=== PATIENT | female | born 2000 | race Caucasian/White ===

== ENCOUNTER → 2024-06-06 09:45 | Outpatient (REF) | payer BC, SELFPAY ==
[2024-06-06 12:05] LABS: % Basophils 0.6 % (0-2); % Eosinophils 0.9 % (0-6); % Immature Granulocytes 0.2 % (0-0.5); % Lymphocytes 28.2 % (20.5-51.1); % Monocytes 10.9 % (1.7-9.3); % Neutrophils 59.2 % (42.2-75.2); Absolute Eosinophils 0.1 10^3/uL (0-0.7); Absolute Lymphocytes 1.5 10^3/uL (1.2-3.4); Absolute Monocytes 0.6 10^3/uL (0.1-0.6); Absolute Neutrophils 3.2 10^3/uL (1.4-6.5); Hematocrit 43.4 % (37.0-47.0); Hemoglobin 14.6 g/dL (12.0-16.0); Mean Corp Hgb Conc. 33.6 g/dL (33.0-37.0); Mean Corpuscular Hgb 29.7 pg (27.0-31.0); Mean Corpuscular Volume 88.2 fL (81.0-99.0); Mean Platelet Volume 11.1 fL (7.4-10.4); Nucleated Red Blood Cells % 0 %; Platelet Count 277 10^3/uL (130-400); Red Blood Cell Count 4.92 10^6/uL (4.20-5.40); Red Cell Dist. Width 12.5 % (11.5-14.5); White Blood Cell Count 5.4 10^3/uL (4.8-10.8)
[2024-06-06 12:12] LABS: HDL Cholesterol 82 mg/dl; LDL Cholesterol, Calculated 120 mg/dl; Total Cholesterol 218 mg/dl (50-199); Triglyceride 84 mg/dl (10-149); Very Low Density Lipoprotein 16 mg/dl (0-30)
[2024-06-06 12:26] LABS: Beta HCG Quantitative < 2.39 mIU/ml; FSH 5.7 mIU/ml; Free T4 0.99 ng/dl (0.78-2.19); Prolactin 35.1 ng/ml (3.0-18.6)
[2024-06-06 12:39] LABS: Glycohemoglobin (HgbA1c) 5.2 % (4.0-5.6)
[2024-06-06 12:41] LABS: Estradiol 91.9 pg/ml
[2024-06-08 20:11] LABS: DHEA Sulfate 482 ug/dL (148-407)
[2024-06-08 23:39] LABS: Insulin, Random 14 uIU/mL
== END ==
LOC: HWRAD 09:45
PROVIDERS: ATTENDING PHYSICIAN Nurse Practitioner Family
DX: N92.6 Irregular menstruation, unspecified (principal)
CPT/HCPCS: 36415; 76856; 80061; 82626; 82627; 82670; 83001; 83002; 83036; 83525; 84146; 84270; 84402; 84403; 84439; 84443; 84702; 85025

== ENCOUNTER → 2024-07-07 11:49 | Outpatient (REF) | payer BC, SELFPAY ==
[2024-07-07 16:28] LABS: Prolactin 50.3 ng/ml (3.0-18.6)
== END ==
LOC: HWLAB 11:49
PROVIDERS: ATTENDING PHYSICIAN Nurse Practitioner Family
DX: E22.1 Hyperprolactinemia (principal)
CPT/HCPCS: 36415; 84146

== ENCOUNTER → 2024-10-23 20:20 | Outpatient (REF) | payer BC, SELFPAY | LOC: MRI 3T 20:20 | PROVIDERS: ATTENDING PHYSICIAN Nurse Practitioner Family | DX: E22.9 Hyperfunction of pituitary gland, unspecified (principal) | CPT/HCPCS: 70553; A9575 ==